=== PATIENT | male | born 2000 | race Caucasian/White ===

== ENCOUNTER 2018-07-11 15:59 | Emergency (ER) | payer MEDICAID, OTHER ==
[~2018-07-11] VITALS: Ht 172.7 cm; Wt 89.6 kg
[~2018-07-11 15:59] MED LIST: NO MEDS
[2018-07-11 16:03] VITALS: Ht 172.7 cm; Wt 89.6 kg
[2018-07-11] MEDS ORDERED: KETOROLAC 60 MG INJ IM STA (18:08)
[2018-07-11] MEDS ORDERED: IBUP-1542 PO (19:24)
--- NOTE | 2018-07-11 19:28 | ERD ---
ER Documentation Chief Complaint Chief Complaint back pain x today hurt at work HPI 17-year-old male presents with left upper back pain after lifting a barrel full of hangers at work today. He has pain with movement. He denies any fall or injury, restricted range of motion, weakness, bowel or bladder incontinence, head injury, additional symptoms. ROS All systems reviewed and are negative except as per history of present illness. Medications Home Meds Active Scripts Ibuprofen* (Motrin*) 600 Mg Tab, 600 MG PO Q6, #30 TAB Prov:ANDREW FULLER MD 07/11/18 Reported Medications [No Meds] No Conflict Check 11/06/10 Allergies Allergies: Coded Allergies: No Known Drug Allergies (Verified Allergy, Mild, 11/06/10) PMhx/Soc Medical and Surgical Hx: pt denies Medical Hx, pt denies Surgical Hx History of Surgery: No Anesthesia Reaction: No Hx Neurological Disorder: No Hx Respiratory Disorders: No Hx Cardiac Disorders: No Hx Psychiatric Problems: No Hx Miscellaneous Medical Probl: No Hx Alcohol Use: No Hx Substance Use: No Hx Tobacco Use: No Smoking Status: Never smoker FmHx Family History: No diabetes, No coronary disease, No other Physical Exam Vitals Vital Signs Date Temp Pulse Resp B/P (MAP) Pulse Ox O2 O2 Flow FiO2 Time Delivery Rate 07/11/18 97.9 76 16 166/88 99 16:03 (114) Physical Exam Const: No acute distress Head: Atraumatic Eyes: Normal Conjunctiva ENT: Normal External Ears, Nose and Mouth. Neck: Full range of motion. No meningismus. Resp: Clear to auscultation bilaterally Cardio: Regular rate and rhythm, no murmurs Abd: Soft, non tender, non distended. Normal bowel sounds Skin: No petechiae or rashes Back: No midline or flank tenderness. Mild tenderness left upper thoracic area approximately T8. No deformities, midline tenderness Ext: No cyanosis, or edema Neur: Awake and alert Psych: Normal Mood and Affect Results 24 hrs Current Medications Medications Dose Sig/Marianela Start Time Status Last (Trade) Ordered Route PRN Stop Time Admin Dose Reason Admin Ketorolac 60 mg ONCE STAT 07/11/18 DC 07/11/18 Tromethamine IM 18:08 18:16 (Toradol) 07/11/18 18:09 Procedures/MDM 18. Subjective complaints- Right upper back pain after lifting a barrel with hangers in it. 19. Objective findings- Tenderness right thoracic spine approximately T8. 19 B. X-ray and laboratory results- X-ray T-Spine 2V Interpreted by me: Bones: No fracture or lytic lesions Joints: No dislocation Foreign body: None. Impression-normal thoracic spine x-ray 20. Diagnosis- Thoracic strain. 21. Findings and diagnosis consistent with patient's account of injury and onset?- Yes 22. Conditions that will impede or delay the patient's recovery? No 23. Treatment rendered- Exam, history, x-ray, Toradol Further treatment required- Ibuprofen, rest, restricted lifting, range of motion. Occupational medicine clinic follow-up. 24. Patient hospitalized?- No 25. Work status- Able to perform usual work- No. Patient can return on- July 12, 2018 Restrictions- No lifting greater than 10 pounds. Limited lifting stooping bending, and repetitive motion of the thoracic spine. Departure Diagnosis: Primary Impression: Strain of thoracic spine Encounter type: initial encounter Qualified Codes: S29.019A - Strain of muscle and tendon of unspecified wall of thorax, initial encounter Condition: Stable Patient Instructions: Thoracic Strain Additional Instructions: X-ray read as normal. Likely musculoskeletal strain. No lifting greater than 10 pounds at work. Recheck with occupational medicine clinic of your employer. Recheck sooner for fevers, shortness of breath, new or worsening symptoms. ANDREW FULLER MD Jul 11, 2018 19:28
[2018-07-11 19:45] VITALS: BP 144/88; PULSE 78; RESP 19
== END 2018-07-11 19:46 | disposition home or self-care (01) ==
LOC: FTE 15:59
DX: S29.019A Strain of muscle and tendon of unspecified wall of thorax, initial encounter (principal); X50.0XXA Overexertion from strenuous movement or load, initial encounter; Y92.89 Other specified places as the place of occurrence of the external cause
CPT/HCPCS: 72072; 96372; J1885; Z7502